=== PATIENT | male | born 1980 | race Caucasian/White ===

== ENCOUNTER 2023-10-23 12:31 | Emergency (ER) | payer OTHER, SELFPAY ==
[2023-10-23 12:38] VITALS: BP 162/74; PULSE 97; RESP 14; TEMP 36.6; O2SAT 97
--- NOTE | 2023-10-23 12:39 | ED.GENADULT ---
HPI - General Adult General Date Seen: 10/23/23 Chief complaint: Extremity Pain/Injury, Upper Stated complaint: RT finger injury Time Seen by Provider: 10/23/23 12:37 History of Present Illness HPI narrative: Very pleasant 43-year-old gentleman presenting to the ER today with an accidental injury to the radial side of his right index finger. He is generally healthy. He is up-to-date with tetanus. He has no history of diabetes, cancer, immunosuppression. He was using a scissors to poke a hole in some fabric today when he accidentally slipped and cut himself on his right finger. He suffered a laceration on the radial side of the middle phalanges of the index finger on the right hand. He noted brisk dark red venous bleeding from the wound. He tried to apply direct pressure, apply dressing in, and elevated home but it kept bleeding so he came here to the ER. No numbness or tingling in the finger. No other injuries. No trouble flexing or standing his joints. Related Data Home Medications ?Medication ?Instructions ?Recorded ?Confirmed amlodipine 5 mg tablet 5 mg PO DAILY 10/23/23 10/23/23 levothyroxine 200 mcg tablet 200 mcg PO DAILY 10/23/23 10/23/23 (Levo-T) Allergies Allergy/AdvReac Type Severity Reaction Status Date / Time No Known Drug Allergies Allergy Verified 10/23/23 12:34 PFSH PFS Social History Smoking Status: Never smoker Do you use any of these nicotine containing products: None How often do you have a drink containing alcohol: never AUDIT-C Alcohol total score: 0 Non-prescribed substance use: denies use Exam Narrative: Exam Narrative: Constitutional: Appears well-developed and well-nourished. Very pleasant. Non-toxic appearing. HENT: Head: Atraumatic. No signs of injury. Nose: No nasal discharge. Mouth/Throat: Mucous membranes are moist. Eyes: Conjunctivae normal and EOM are normal. Pupils are equal, round, and reactive to light. Right eye exhibits no discharge. Left eye exhibits no discharge. No icterus. Neck: Normal range of motion. Neck supple. No adenopathy. No stridor. Cardiovascular: Normal rate and regular rhythm. Strong radial pulse. Brisk capillary refill . When I remove the dressing no arterial bleeding. Small amount of venous oozing. Pulmonary/Chest: Effort normal. No stridor. No respiratory distress. No wheezes.No rhonchi. No rales. No retractions. Musculoskeletal: Normal range of motion. No edema. No tenderness. No deformity. The patient has a 1-1.5 cm curving J-shaped laceration on his right hand, 2nd digit. The laceration is on the radial side of the digit corresponding to the middle phalanx. The laceration approaches the PIP joint, but does not appear to involve the joint space. Intact flexor and extensor tendon function of the D IP, PIP, MCP. Intact radial and ulnar digital nerve function. Brisk distal cap refill. Intact radial, median, ulnar nerve sensory function. Neurological: Alert. Normal strength. No cranial nerve deficit or sensory deficit. Coordination normal. GCS eye subscore is 4. GCS verbal subscore is 5. GCS motor subscore is 6. Skin: Skin is warm. No rash noted. Const: Vital Signs, click to edit/add: Vital Signs - 24 hr 10/23/23 12:38 Temperature 98 F Pulse Rate [Pulse Oximeter] 97 Respiratory Rate 14 Blood Pressure [Ri t Upper Arm] 162/74 H Pulse Oximetry 97 Oxygen Delivery Me thod Room Air Course Vital Signs Vital signs: Initial Vital Signs Temperature 98 F 10/23/23 12:38 Temperature Source Temporal Artery Scan 10/23/23 12:38 Pulse Rate 97 10/23/23 12:38 Respiratory Rate 14 10/23/23 12:38 Blood Pressure 162/74 H 10/23/23 12:38 Blood Pressure Mean 103 10/23/23 12:38 Blood Pressure Position Sitting 10/23/23 12:38 Pulse Oximetry 97 10/23/23 12:38 Oxygen Delivery Method Room Air 10/23/23 12:38 Vital Signs Temperature 98 F 10/23/23 12:38 Pulse Rate 97 10/23/23 12:38 Respiratory Rate 14 10/23/23 12:38 Blood Pressure 162/74 H 10/23/23 12:38 Pulse Oximetry 97 10/23/23 12:38 Oxygen Delivery Method Room Air 10/23/23 12:38 Temperature 98 F 10/23/23 12:38 Pulse Rate 97 10/23/23 12:38 Respiratory Rate 14 10/23/23 12:38 Blood Pressure 162/74 H 10/23/23 12:38 Pulse Oximetry 97 10/23/23 12:38 Oxygen Delivery Method Room Air 10/23/23 12:38 Medical Decision Making MDM Narrative Medical decision making narrative: Findings and exam are consistent with an uncomplicated laceration which was repaired as noted above. There is no evidence at this time to suggest any associated fracture or foreign body. There is no evidence to suggest tendon or arterial injury and patient is neurologically in tact. The patient is to follow up for suture removal as instructed in 10 days. Indications to seek urgent reevaluation and signs of infection (including but not limited to increasing pain, redness, swelling, fevers, and drainage) were reviewed. Tetanus is up-to-date. This is a clean and non-contaminated wound in which prophylactic antibiotics are not indicated. An understanding of the discharge instructions and need for follow up were verbally confirmed. Discharge Plan Discharge Clinical Impression: Finger laceration Patient Disposition: Home, Self-Care Condition: Stable Instructions: Finger Laceration (ED) Additional Instructions: As we discussed, please follow-up for suture removal in about 10 days (next Saturday). A keep your finger relaxed and try to keep her finger joints straight to avoid stretching the wound edges are pulling the stitches out. To care for the wound, clean the wound gently once per day with warm water. After the wound is clean, let it air dry or dab it dry with gauze. Apply small amount of antibiotic ointment and keep the wound covered with a bandage her dressing every day until you have the stitches removed. Come back to the ER right away if you have any concerns, especially if you have trouble with bleeding, numbness in her finger, or develop signs of infection (such as redness, swelling, or pus draining from your wound). Prescriptions: No Action amlodipine 5 mg tablet 5 mg PO DAILY levothyroxine [Levo-T] 200 mcg tablet 200 mcg PO DAILY Follow Up/Referrals: Provider,Not a Local [Primary Care Provider] - [facility] Procedures Laceration Right hand, index finger : Pre procedure diagnosis: Finger laceration Post procedure diagnosis: Finger laceration Verification/time out: correct patient, correct site and correct procedure Site: hand (Right index finger) Side (If applicable): right Size (cm): 1.5 Description: other (J-shaped 1.5 cm laceration) Depth: simple, single layer Local Anesthetic: bupivacaine 0.25% (Total of 2.5 mL. Digital block performed. Sterile technique used and sterile prep use with Betadine. 27 gauge needle. volar approach. Aspiration confirms noIV injection. 2.5 mL bupivacaine inti volar compartment of proximal phalanx.) Pre-repair: wound explored and deep structures intact (Script picking irrigation with sterile saline.) Skin layer closed with: nylon Size (cm): 5-0 Number of sutures: 5
--- OUTSIDE RECORDS SUMMARY | 2023-10-23 13:19 | XMS_ITS | Clinical Summary ---
Author Organization [facility] Address [place], [place] [address] Care Team Providers Care Occup Therapist Name Role Phone Pramod Rolle MD Primary Care Provider Allergies No known active allergies Medications Medication Sig Dispensed Refills Start Date End Date Status amLODIPine (NORVASC) 10 mg tabletIndications:Hyp ertension Take 1 Tablet (10 mg) by mouth once daily. 90 Tablet 3 12/21/2022 Active levothyroxine (SYNTHROID) 200 mcg tabletIndications:Hyp othyroidism (acquired) Take 1 Tablet (200 mcg) by mouth once daily. 90 Tablet 3 12/21/2022 Active Active Problems Problem Noted Date Diagnosed Date Dependence on nicotine from chewing tobacco 04/2022 Hypothyroidism (acquired) 09/08/2018 Overview: Post ablation for Grave's Disease S/P ACL repair 01/29/2018 Sprain of anterior cruciate ligament of left kne e 01/29/2018 Essential hypertension 01/13/2018 Left anterior cruciate ligament tear 01/13/2018 Status post reconstruction of anterior cruciate ligament Encounters Date Type Department Care Team Description 10/04/2023 3:20 PM CDT Office Visit [facility] [address] [place] [address] Pramod Rolle MD Back Pain (Lower back, ongoing, getting worse, radiating into hips); Neck Pain/problem (Neck pain, radiates into shoulders, ongoing, getting worse) 10/04/2023 Travel from Last 3 Months Immunizations Name Administration Dates Next Due Anthrax Vaccine 06/04/2008, 4,08/03/2003,07/19,07/06/2003 HepA-HepB (Twinrix) 03/24/2006,05/30/2003,2002 Hepatitis B (Adult) 02/09/2002,12/29/2001 Inactivated Polio Vaccine 12/29/2001 Influenza A (H1N1), Inactiva rod (Age >=3 Years) 03/15/2009 Influenza Virus, Unspecified 02/03/2013, 02/20/2011,02/20/2010,01/20,04/03/2008,01/20/2007,01/20/2006 ,02/05/2002 Influenza, IIV4 04/08/2019,03/03/2018 Influenza, split (incl. ranjit fied surface antigen) 02/12/2010,03/28/2008,03/09/2007,04/28,07/06/2003,02/09/2002 Meningococcal Vaccine (Menomune) 12/29/2001,05/2001 Pneumococcal, Unspecified 08/21/2003 Smallpox (Vaccinia) Live [id number] 07/13/2003 TD, UNSPECIFIED 08/21/2003 Td (Age >=7 Years) 12/29/2001 Td, Preservative Free (age >= 7 Years) 5 Tdap 05/01/2014,10/04/2010 Typhoid (injectable) 06/04/2008 Typhoid, Unspecified 08/22/2002 Yellow Fever 05/30/2003 Family History Medical History Relation Name Comments Diabetes Maternal Grandfather Diabetes Mother Heart failure Mother Relation Name Status Comments Maternal Grandfather Mother Social History Tobacco Use Types Packs/Day Years Used Date Smoking Tobacco: Never Smokeless Tobacco: Current Chew Tobacco Cessation:Ready to Q uit: No; Counseling Given: No Alcohol Use Standard Drinks/Week Comments Yes 0 (1 standard drink = 0.6 oz pur e alcohol) Social PHQ-2 Answer Date Recorded PHQ-2 TOTAL SCORE 0 12/21/2022 Social Connections Answer Date Recorded Frequency of Communication with Friends and Fami ly 0 12/18/2022 Financial Resource Strain Answer Date R ecorded Difficulty of Paying Living Expenses 3 12/18/2022 Difficulty of Paying Living Expenses Not on file 12/18/2022 Food Insecurity Answer Date Recorded Worried About Running Out of Food in the Last Ye ar 1 12/18/2022 Transportation Needs Answer Date Record ed Lack of Transportation (Medical) 1 12/18/2022 Housing Stability Answer Date Recorded Unable to Pay for Housing in the Last Year 1 12/18/2022 Sex and Gender Information Value Date Recorded Sex Assigned at Not on file Gender Identity Not on file Sexual Orientation Not on file Obstetrics History Last Filed Vital Signs Vital Sign Reading Time Taken Comments Blood Pressure 124/82 10/04/2023 3:30 PM CDT Pulse 38 10/04/2023 2:47 PM CDT Temperature 36.8 ??C (98.2 ??F) 11/12/2019 12:43 PM C DT Respiratory Rate 20 06/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 Oxygen Saturation 98% 10/04/2023 2:47 PM CDT Inhaled Oxygen Concentration - - Weight 99.6 kg (219 lb 9.6 oz) 10/04/2023 2:47 P M CDT Height 180.3 cm (5' 11) 10/04/2023 2:47 PM CDT Body Mass Index 30.63 10/04/2023 2:47 PM CDT Plan of Treatment Health Maintenance Due Date Last Done Comments COVID-19 vaccine series ( season) 2022 03/01/2021, 02/08/2021 Depression screening for age 12+ 12/22/2023 12/21/2022, 09/29/2021, 09/29/2021, Additional history exists Influenza for age 9-49 12/22/202304/08/201 9, 03/03/2018, 02/03/2013, Additional history exists Tetanus booster 06/07/2024 06/07/2014, 04/22, 10/04/2010, Additional history exists BMI (ht and wt on same day) for age 18+ 10/03/2024 10/04/2023, 12/21/2022, 09/28/2021, Additional history exists Lipids for age 35-44 11/11/2024 11/12/2019 Pneumococcal series for age 6-64 Aged Out 08/21/2003 No longer eligible based on patient's age to complete this topic Tdap Completed 05/01/2014, 10/04/2010 Hepatitis C screening for age 18-79 Completed 09/28/2021 HIV for age 15-65 Completed 12/21/2022 Medical Devices Implanted Type Area Supervisor Feed Mill Device Identifier Shelf Expiration Date Model / Serial / Lot [id number] - [id number] Implanted:Qty: 1 on 01/20/2018 by Lee Foley MD at [facility] Left: Knee [employer] 09/19/2022 [id number] / / [id number] Description:BTB TightRope Do uble Loaded Passing Sutures [id number] - [id number] Implanted:Qty: 1 on 01/20/2018 by Lee Foley MD at [facility] Left: Knee [employer] 08/20/2019-4020C-07 / / [id number] Description:FastTread Bio[employer] posite Interference Screw Jun-[id number] Implanted:Qty: 1 on 01/20/2018 by Lee Foley MD at [facility] Left: Knee [employer] 10/20/2019-1593 / / [id number] Description:Implant System, Secondary Fixation with SwivelLock, ACL/PCL Repair [id number] Implanted:Qty: 1 on 01/20/2018 by eLe Foley MD at [facility] Left: Knee [employer] 08/18/2019 / / [id number] Description:AlloSync Procedures Procedure Name Priority Date/Time Associated Diagnosis Comments ANTI HIV 1/2 Routine 12/21/2022 10:34 AM CDT Screening for HIV (human immunodeficiency virus) ANTI HCV Routine 09/28/2021 3:10 PM CDT Need for hepatitis C screening test LIPID PANEL W REFLEX MEASURED LDL Routine 11/12/2019 1:15 PM CDT Lipid screening from Last 3 Months or Most Recently Relevant to Health Maintenance Results * ANTI HIV 1/2 (12/21/2022 10:34 AM CDT) [facility] HIV-1/HIV-2 SCREEN Non-Reacti ve Non-Reacti ve 12/21/2022 8:52 PM CDT [facility] Comment:HIV-1 p24 and HIV-1/ HIV-2 Ab Not Detected. Blood BLOOD SPECIMEN / Unknown Venipuncture / Unknown 12/21/2022 10:34 AM CDT 12/21/2022 10:35 AM CDT Pramod Rolle MD [facility] [address] [place] [address], [place] * ANTI HCV (09/28/2021 3:10 PM CDT) [facility] HEPATITIS C ANTIBODY Non-React shannan Non-React shannan 09/29/2021 4:22 PM CDT [facility] Comment:Antibodies to HCV no t detected; does not exclude the possibility of exposure to HCV. Blood BLOOD SPECIMEN / Unknown Venipuncture / Unknown 09/28/2021 3:10 PM CDT 09/28/2021 3:13 PM CDT Pramod Rolle MD SEND OUTS Performing Organization Address City/[facility]/ZIP Co de Phone Number [facility] [address] [place] [address], [place] * (ABNORMAL) LIPID PANEL W REFLEX MEASURED LDL (11/12/2019 1:15 PM CDT) [facility] CHOLESTEROL,TOTAL 200(H) 100 - 199 mg/dL 11/12/2019 10:38 PM CDT [facility] TRIGLYCERIDES 87 <150 mg/dL 11/12/2019 10:38 PM CDT [facility] HDL CHOLESTEROL 63 >40 mg/dL 0 10:38 PM CDT [facility] NON-HDL CHOLESTEROL 137 <145 mg/dl 11/12/2019 10:38 PM CDT [facility] CHOL/HDL RATIO 3.17 <4.50 11/12/2019 10:38 PM CDT [facility] LDL CHOLESTEROL 120 <=130 mg/dL 11/12/2019 10:38 PM CDT [facility] PROVIDER ORDERED STATUS RANDOM 11/12/2019 10:38 PM CDT [facility] Blood BLOOD SPECIMEN / Unknown Venipuncture / Unknown 11/12/2019 1:15 PM CDT 11/12/2019 1:16 PM CDT Pramod Rolle MD CHEMISTRY [facility] [address] [place] [address], from Last 3 Months or Most Recently Relevant to Health Maintenance Advance Directives * Full Code (Latest Code Status on File) Date Activated Date Inactivated Comments 01/20/2018 6:27 AM 01/20/2018 5:03 PM Question Answer Comments Code Status Discussion: Discussed Care Teams Occup Therapist Relationship Specialty Start Date End Date Pramod Rolle MD [address] [place] [address] PCP - General Family Practice 09/13/20
--- OUTSIDE RECORDS SUMMARY | 2023-10-23 13:19 | XMS_ITS | Continuity of Care Document ---
Author Name [facility] Organization [facility] Care Team Providers Care Superintendent Meter Tests Name Role Phone [facility] Unavailable Unavailable Problems Combined list of problems from Department of [facility] and [facility] facilities. It does not include entries that were removed or entered in error. 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 [facility] Graves' Disease * (ICD-9-CM 242.00) Inactive Condition 07/10/2017 [facility] Influenza * (ICD-9-CM 487.1) Inactive Condition 07/10/2017 [facility] visit for: ears / hearing exam Active Condition [facility] visit for: services physical Active Condition [facility] Central Auditory Function Test Nonspecific Abnormal Findings Active Condition [facility] wrist sprain left Inactive Condition [facility] common cold Active Condition [facility] Patient Counseling: Inactive Condition [facility] Patient Education - Injury Prevention Inactive Condition [facility] visit for: routine eye exam Inactive Condition [facility] visit for: occupational health / fitness exam Inactive Condition [facility] Medications Combined list of outpatient medications from Department of [facility] and [facility] facilities.Medications provided include 1) outpatient medications from the last 15 months, and 2) patient-reported medications. Medication Details Route Status Patient Instructions Prescription Expires Prescription Number Last Dispense Date Ordering Provider Order Date Order Qty Source ACETAMINOPH EN TAB ACETAMIN OPHEN TAB Non-VA TAKE Q6H PRN Dec 31, 2007 [facility] Document ed by: Shon SOLER Document ed at: [facility] ACTIVE Shon SOLER 2007 [facility] AMLODIPINE BESYLATE (amlodipine besylate), 10 MG, TABLET, ORAL, [facility], 1000 ea. BOTTLE Active [id number] 3 2023 90 Pharmac y Data Transac tion Service Facilit y AMLODIPINE BESYLATE (amlodipine besylate), 10 MG, TABLET, ORAL, [facility], 1000 ea. BOTTLE Active [id number] 4 2023 90 Pharmac y Data Transac tion Service Facilit y LEVOTHYROXI NE SODIUM (levothyrox ine sodium), 200 MCG, TABLET, ORAL, [facility], 100 ea. BOTTLE Active [id number] 3 2022 90 Pharmac y Data Transac tion Service Facilit y LEVOTHYROXI NE SODIUM (levothyrox ine sodium), 200 MCG, TABLET, ORAL, [facility], 100 ea. BOTTLE Active [id number] 4 2023 90 Pharmac y Data Transac tion Service Facilit y LEVOTHYROXI NE SODIUM (levothyrox ine sodium), 200 MCG, TABLET, ORAL, [facility]ACE, 100 ea. BOTTLE Active [id number] 4 2023 90 Pharmac y Data Transac tion Service Facilit y MULTIVITAMI NS CAP/TAB MULTIVIT AMINS CAP/TAB Non-VA TAKE ONE TABLET BY MOUTH EVERY DAY Dec 31, 2007 Non-VA Document ed by: Shon SOLER Document ed at: [facility] ORAL ACTIVE Shon SOLER 2007 [facility] Immunizations Combined list of available immunizations from the Department of Defense and Veterans Affairs facilities. Immunization Series Date Given Administered By Site Reaction Lot Number CVX Code Drug [facility] Status Comments Source COVID-19, mRNA, LNP-S, PF, 30 mcg/0.3 mL dose 2020 [employer] [place] (PFR) Not Given COVID-19, mRNA, LNP-S, PF, 30 mcg/0.3 mL dose [facility] COVID-19, mRNA, LNP-S, PF, 30 mcg/0.3 mL dose 2020 [employer] [place] (PFR) Not Given COVID-19, mRNA, LNP-S, PF, 30 mcg/0.3 mL dose DoD influenza, injectable, quadrivalent, preservative free 2018 TONO MILLER () Not Given influenza , injectabl e, quadrival ent, preservat shannan free DoD INFLUENZA, SEASONAL, INJECTABLE 2016 141 complet ed [facility] [facility] INFLUENZA, SEASONAL, INJECTABLE 2014 141 complet ed [facility] TDAP 2014 115 complet ed [facility] tetanus toxoid, reduced diphtheria toxoid, and acellular pertu is vaccine, adsorbed 1 2011 [id number] 115 Other (OTH) complet ed tetanus toxoid, reduced diphtheri a toxoid, and acellular pertussis vaccine, adsorbed DoD Influenza, seasonal, injectable 1 2011 [id number] 141 [employer] (CSL) complet ed Influenza , seasonal, injectabl e DoD INFLUENZA, UNSPECIFIED FORMULATION 2010 88 complet ed [facility] Influenza, seasonal, injectable, preservative free 1 2010 [id number] Unknown (UNK) comple t ed Influenza , seasonal, injectabl e, preservat shannan free DoD INFLUENZA, UNSPECIFIED FORMULATION 2009 88 complet [facility] influenza virus vaccine, split virus (incl. purified surface antigen)-reti red CODE 1 2009 [id number] 15 CS [employer] (CSL) complet ed influenza virus vaccine, split virus (incl. purified surface antigen)- retired CODE DoD Novel influenza-H1N 1-09, injectable 1 2008 [id number] 127 Unknown (UNK) complet ed Novel influenza -[id number], injectabl e DoD influenza virus vaccine, unspecified formulation 1 2008 [id number] 88 Unknown (UNK) comple t ed influenza virus vaccine, unspecifi ed formulati on DoD anthrax vaccine 5 2008 UNK 24 Miles (MIL) complet ed anthrax vaccine DoD typhoid Vi capsular polysaccharid e vaccine 1 2008 [id number] Sanofi Pasteur ([facility]) complet ed typhoid Vi capsular polysacch aride vaccine DoD INFLUENZA, UNSPECIFIED FORMULATION 2007 88 complet ed [facility] influenza virus vaccine, split virus (incl. purified surface antigen)-reti red CODE 1 2007 [id number] 15 Unknown (UNK) comple t ed influenza virus vaccine, split virus (incl. purified surface antigen)- retired CODE DoD influenza virus vaccine, split virus (incl. purified surface antigen)-reti red CODE 1 2006 UNK 15 Unknown (UNK) comple t ed influenza virus vaccine, split virus (incl. purified surface antigen)- retired CODE DoD INFLUENZA (HISTORICAL) 2006 88 complet ed [facility] influenza virus vaccine, split virus (incl. purified surface antigen)-reti red CODE 1 2006 UNK 15 Unknown (UNK) comple t ed influenza virus vaccine, split virus (incl. purified surface antigen)- retired CODE DoD hepatitis A and hepatitis B vaccine 3 2005 [id number] 104 Unknown (UNK) complet ed hepatitis A and hepatitis B vaccine DoD INFLUENZA (HISTORICAL) [address] [facility] anthrax vaccine 4 2003 [id number] [employer] [place] (MIP) complet ed anthrax vaccine DoD PNEUMOCOCCAL, UNSPECIFIED FORMULATION [address] [facility] TD(ADULT) UNSPECIFIED FORMULATION [address] [facility] anthrax vaccine 3 2003 [id number] [employer] [place] (MIP) complet ed anthrax vaccine DoD anthrax vaccine 2 2003 [id number] [employer] [place] (MIP) complet ed anthrax vaccine DoD vaccinia (smallpox) vaccine 1 2003 [id number] Ami (WAL) complet ed vaccinia (smallpox ) vaccine DoD influenza virus vaccine, split virus (incl. purified surface antigen)-reti red CODE 1 2003 [id number] Sanofi Pasteur ([facility]) complet ed influenza virus vaccine, split virus (incl. purified surface antigen)- retired CODE DoD anthrax vaccine 1 2003 [id number] [employer] [place] (MIP) complet ed anthrax vaccine DoD yellow fever vaccine 1 2003 [id number] 37 Unknown (UNK) comple t ed yellow fever vaccine DoD hepatitis A and hepatitis B vaccine 2 2003 UNK 104 Unknown (UNK) comple t ed hepatitis A and hepatitis B vaccine DoD typhoid vaccine, unspecified formulation 0 2002 UNK 91 Unknown (UNK) comple t ed typhoid vaccine, unspecifi ed formulati on DoD hepatitis A and hepatitis B vaccine 1 2002 UNK 104 Unknown (UNK) comple t ed hepatitis A and hepatitis B vaccine DoD influenza virus vaccine, split virus (incl. purified surface antigen)-reti red CODE 0 2001 UNK 15 Sanofi Pasteur ([facility]) complet ed influenza virus vaccine, split virus (incl. purified surface antigen)- retired CODE DoD hepatitis B vaccine, adult dosage 1 2001 UNK 43 Unknown (UNK) comple t ed hepatitis B vaccine, adult dosage DoD influenza virus vaccine, unspecified formulation 0 2001 UNK 88 Unknown (UNK) comple t ed influenza virus vaccine, unspecifi ed formulati on DoD measles, mumps and rubella virus vaccine 0 2001 [id number] Merck (MSD) complet ed measles, mumps and rubella virus vaccine DoD tetanus and diphtheria toxoids, adsorbed, preservative free, for adult use (2 Lf of tetanus toxoid and 2 Lf of diphtheria toxoid) 0 2001 [id number] Sanofi Pasteur ([facility]) complet ed tetanus and diphtheri a toxoids, adsorbed, preservat shannan free, for adult use (2 Lf of tetanus toxoid and 2 Lf of diphtheri a toxoid) DoD poliovirus vaccine, inactivated 0 2001 [id number] Sanofi Pasteur ([facility]) complet ed polioviru s vaccine, inactivat ed DoD meningococcal polysaccharid e vaccine (MPSV4) 0 2001 [id number] Sanofi Pasteur ([facility]) complet ed meningoco ccal polysacch aride vaccine (MPSV4) DoD hepatitis B vaccine, adult dosage 1 2001 [id number] 43 Merck (MSD) complet ed hepatitis B vaccine, adult dosage DoD meningococcal polysaccharid e vaccine (MPSV4) 0 2001 UNK 32 Unknown (UNK) comple t ed meningoco ccal polysacch aride vaccine (MPSV4) DoD Encounters Combined list of: 1) Encounters from Department of Veterans Affairs facilities going back up to thelast 18 months. 2) Encounters from the Department of Defense facilities going back up to 280 months. Location Location Details Encounter Type Encounter Number Reason For Visit Attending Provider ADM Date DC Date Status Disposition Source [place], [place](1CDTF) OUTPATIENT [id number] cdtf screeni ng RAISSA ARGUELLO 12/17 Released w/o Limitations [place](1CDT F) [facility] S A17 Fabricati on) OUTPATIENT [id number] cold sx URI sx TI [place] 06/10 Released w/o Limitations [facility] t[facility]) [facility] Facility OUTPATIENT [id number] 03/24 Released w/o Limitations Theater Facilit y [facility]) OUTPATIENT [id number] KEENAN GARAY 05/30 Released w/o Limitations [facility] ) Procedures Combined list of: 1) Procedures from Department of Veterans Affairs facilities going back up to thelast 18 months, not all VA non-surgical procedures are included; 2) All procedures from the Department of Defense facilities. Procedure Procedure Type Code Date Perfomer Comments [facility] e Audiometry Group Testing Audiometry Group Testing [id number] 05/30/2009 ELA RAMOS [facility] Physician Supervised Group Educational Services 05/30/2009 ELA RAMOS [facility] Threshold Audiogram (Pure Tone) Threshold Audiogram (Pure Tone) [id number] 05/30/2009 ELA RAMOS [facility] ENT Services ENT Services [id number] 05/30/2009 EAL RAMOS [facility] Special Physician Services Analysis Of Computerized Data Special Physician Services Analysis Of Computerized Data [id number] 05/30/2009 ELA RAMOS [facility] Eye Findings Diagnostic Dark Adaptation Exam Eye Findings Diagnostic Dark Adaptation Exam [id number] 12/17/2005 ANUPAM HOLLY [facility] Screening Test Of Visual Acuity, Quantitative, Bilateral Screening Test Of Visual Acuity, Quantitative, Bilateral 36043 12/17/2005 ANUPAM HOLLY. [facility] DIAGNOSTIC DARK ADAPTATION EXAMINATION WITH INTERPRETATION AND REPORT 12/17/2005 [facility] EXT PAT & WHEN PERF,AUTO ACT ECG RHY [place]EL EVNT REC,SYMPT-RELAT MEM LOOP,REM DOWNLOAD CAPABILITY UP TO 30 DAYS,24-HOUR ATTENDED MON;REVIEW &INTERPRET,A PHYS/OTH QUALIFIED HEALTH AUDIO PRODUCTION MANAGER 01/22/2002 [facility] TRANSPORTATION OF PORTABLE EKG TO FACILITY OR LOCATION, PER PATIENT 01/22/2002 [facility] PHYS/OTH QUALIFIED HEALTH AUDIO PRODUCTION MANAGER QUALIFIED,EDUCATION,T RAIN,LICENSURE/REGULA TION (WHEN APPLICABLE) EDUC SER RENDERED TO PATS IN A GRP SETTING (EG,,OBESITY, OR DIABETIC INSTRUCT) 05/30/2009 [facility] COLLECTION OF VENOUS BLOOD BY VENIPUNCTURE 05/26/2009 [facility] ANALYSIS OF CLINICAL DATA STORED IN COMPUTERS (EG, ECGS, BLOOD PRESSURES, HEMATOLOGIC DATA) 07/14/2008 [facility] COLLECTION OF VENOUS BLOOD BY VENIPUNCTURE 06/04/2008 [facility] HEPATITIS A VACCINE (HEPA), ADULT DOSAGE, FOR INTRAMUSCULAR USE 11/25/2003 [facility] UNLISTED VACCINE/TOXOID 07/14/2003 [facility] SKIN TEST; TUBERCULOSIS, EDWIN TEST 07/07/2003 [facility] Social History Combined list of available smoking, tobacco, and other social history from Department of Defense and [facility] facilities. Social History Type Response Date Comment Sourc e Tobacco smoking status NHIS CURRENT TOBACCO USER 07/10/2017 [facility] History of tobacco use FORMER TOBACCO US ER 7Y OR GREATER 01/23/2016 [facility] History of tobacco use FORMER TOBACCO US ER 7Y OR GREATER 01/17/2015 [facility] History of tobacco use FORMER TOBACCO US E >1Y <7Y 06/06/2011 [facility] History of tobacco use CURRENT TOBACCO USER 01/11/2010 [facility] History of tobacco use FORMER TOBACCO US E >1Y <7Y 04/26/2008 [facility] History of tobacco use FORMER TOBACCO USE <1Y 07/11/2007 [facility] History of tobacco use FORMER TOBACCO USE <1Y 04/29/2006 [facility] This section is an empty social history section. [facility] Advance Directives List of completed, amended, or rescinded Advance Directives on record at Department of Veterans Affairs facilities. An actual copy of the Directive is not included. Date Advance Directive Provider Source 04/25/2005 ADVANCE DIRECTIVE VIKASH WARREN [facility]
== END 2023-10-23 13:44 | disposition home or self-care (01) ==
PROVIDERS: Emergency Provider Emergency Medicine
DX: S61.210A Laceration without foreign body of right index finger without damage to nail, initial encounter (principal); W27.2XXA Contact with scissors, initial encounter
CPT/HCPCS: 12001; 99282; 99283